=== PATIENT | female | born 1985 | race Caucasian/White ===

== ENCOUNTER 2025-06-23 13:04 | Emergency (ER) | payer MEDICAID, SELFPAY ==
[2025-06-23 13:06] VITALS: BP 128/98; PULSE 102; RESP 18; TEMP 37.7; O2SAT 99; BMI 35.6
[2025-06-23 13:07] VITALS: BP 128/98; PULSE 102; RESP 18; TEMP 37.7; O2SAT 99
[2025-06-23 14:07] VITALS: BP 145/70; PULSE 100; RESP 16; TEMP 37.7; O2SAT 100
--- NOTE | 2025-06-23 14:15 | EX.ED.DYSGE1 ---
HPI History of Present Illness Chief Complaint: Dental Narrative Narrative: Patient is a 59-year-old female with no known significant past medical history who presented to the emergency department with a chief complaint of dental pain. States that her pain started on Tuesday and notes that she has a cracked tooth. States that she does not have a dentist. Patient states that she does have allergy to penicillin. Patient states that she has not been take anything for pain. PFSH PFSH Medical History no medical history Home Medications ?Medication ?Instructions ?Recorded ?Last Taken ?Type clindamycin HCl 300 mg capsule 300 mg PO TID #14 caps 06/23/25 Unknown Rx (Cleocin HCl) ondansetron 4 mg disintegrating 4 mg PO Q6H PRN nausea and 06/23/25 Unknown Rx tablet vomiting #20 tabs oxycodone-acetaminophen 5 mg-325 1 tab PO Q6H PRN pain 3 days #12 06/23/25 Unknown Rx mg tablet (Endocet) tabs Allergy/AdvReac Type Severity Reaction Status Date / Time Penicillins Allergy Hives Verified 06/23/25 13:08 Social History Smoking Status: Unknown if ever smoked ROS ROS ED ROS Narrative Constitutional: Denies any fevers or chills Eye, ears, nose, throat s: Complains of dental pain as noted above denies any difficulty swallowing Neurological: Denies any numbness,'s, tingling Skin: Denies any rashes or lesions weakness, EXAM Physical Exam Narrative Exam Narrative: General: Patient sitting in chair at bedside rest comfortably did not appear to be in acute distress Head: Atraumatic, normocephalic Eyes, ears, nose, throat: PERRL bilaterally, EOMI bilateral, no conjunctival injection noted, patient has a cracked tooth noted posteriorly on the left no periapical abscess noted no drainable fluid collection noted no sublingual swelling Neck: Soft, supple, trachea midline, no evidence of Owen's angina Cardiovascular: Patient tachycardic with a regular rhythm Respiratory: Clear to auscultation bilaterally Neurological: Patient follow commands that she was at [facility] years 2024 Skin: Warm, dry, intact no rashes or lesions noted Const Vital Signs: 06/23/25 13:06 06/23/25 13:07 Temperature 99.9 F H 99.9 F H Temperature Source Oral Oral Pulse Rate 102 H 102 H Respiratory Rate 18 18 Blood Pressure 128/98 H 128/98 H Blood Pressure Mean 108 108 Pulse Ox 99 99 Oxygen Delivery Method Room Air Room Air MDM MDM MDM Narrative Medical decision making narrative: Patient is a 39-year-old female who presents to the emergency department the chief complaint of dental pain. On the differential diagnose includes but limited to dental caries, periapical abscess. Patient be given prescription for clindamycin as well as Percocet and Zofran. She is advised to rotate Tylenol and ibuprofen [id number] for mild to moderate pain. Patient was advised to follow-up with a dentist she was given a dental referral list for this. She was advised to return with worsening symptoms or other concerns. She is agreeable this plan all question concerns answered she was discharged home in stable condition. Discharge Plan Triage Chief Complaint: Dental ED Provider: Brennen Cobb Dx/Rx/DC Orders Clinical Impression: Broken or cracked tooth, nontraumatic, Pain, dental, Dental caries Prescriptions: New clindamycin HCl [Cleocin HCl] 300 mg capsule 300 mg PO TID Qty: 14 0RF ondansetron 4 mg tablet,disintegrating 4 mg PO Q6H PRN (Reason: nausea and vomiting) Qty: 20 0RF oxycodone-acetaminophen [Endocet] 5-325 mg tablet 1 tab PO Q6H PRN (Reason: pain) 3 Days Qty: 12 0RF Primary Care Provider: Care Physician,No Primary Referrals: Care Physician,No Primary [Primary Care Provider] - Kaitlin Clement Paul, CREW CALLER-C [[facility]] - Activity Restrictions/Additional Instructions: Rotate Tylenol and Profen [id number] for mild to moderate pain. When you do this he can take some every 3 hours for pain max dose Tylenol in 24 hours 4000 mg max dose of ibuprofen in 24 hours 3200 mg. Use the Percocet for severe pain and ensure that you use Zofran with this as this will upset your stomach both these were sent to your pharmacy. Follow-up with a dentist you were given a dental referral list these teeth need removed. Take antibiotics as prescribed. Print Language: Tamazight Disposition Disposition: Home, Self Care
[2025-06-23 14:30] VITALS: BP 133/70; PULSE 98; RESP 16; TEMP 37.7; O2SAT 99
--- NOTE | 2025-06-23 14:36 | CM.ED ---
Social Work Date of referral: 06/23/25 Reason for referral: Resources Referred by: Social Work Identification Patient provided consent to social work visit. Patient confirmed she is not currently connected with a dentist. Mdm Sr provided education about the benefits of routine dental care and a written hand out for the [facility] which patient accepted and expressed appreciation for. Joellen Matt, DIRECTOR OF DEVELOPMENT, ANIME DESIGNER
--- NOTE | 2025-06-23 14:41 | ED.RN ---
PT. PROVIDED WITH DENTAL CLINIC FORM
== END 2025-06-23 14:41 | disposition home or self-care (01) ==
PROVIDERS: Emergency Provider Emergency Medicine; Visit Provider Emergency Medicine
DX: K03.81 Cracked tooth (principal); K02.9 Dental caries, unspecified; K08.89 Other specified disorders of teeth and supporting structures
CPT/HCPCS: 99282